=== PATIENT | female | born 1995 | race Two or more races ===

== ENCOUNTER 2022-03-29 23:06 | Emergency (ER) | payer OTHER ==
[~2022-03-29] VITALS: Ht 160 cm; Wt 54.4 kg
--- NOTE | 2022-03-30 00:15 | NUR ---
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 PT IS AAO X 4, IN NO ACUTE DISTRESS. PT ATTCHED TO MONITOR AN DPULSE OX. WILL MONITOR
[2022-03-30] MEDS ORDERED: IBUPROFEN 400 MG TABLET ONE (00:23)
--- NOTE | 2022-03-30 00:25 | NUR ---
urine collected, sent to lab
--- NOTE | 2022-03-30 00:26 | NUR ---
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
[2022-03-30] MEDS ORDERED: IBUPROFEN 400 MG TABLET PO ONE (00:30)
[2022-03-30 00:39] LABS: BASOPHILS % (AUTO) 0.4 % (0.0-2.0); EOSINOPHILS % (AUTO) 0.8 % (0.0-6.0); HEMATOCRIT 42 % (33-45); HEMOGLOBIN 14.1 g/dL (11.5-14.8); LYMPHOCYTES # (AUTO) 2.4 K/uL (0.8-4.8); LYMPHOCYTES % (AUTO) 23.6 % (20.0-44.0); MEAN CORPUSCULAR HGB CONC 33 g/dl (31.0-36.0); MEAN CORPUSCULAR VOLUME 88 fL (82-100); MONOCYTES # (AUTO) 0.7 K/uL (0.1-1.30); NEUTROPHILS # (AUTO) 6.9 K/uL (1.8-8.9); NEUTROPHILS % (AUTO) 68.2 % (43.0-81.0); PLATELET COUNT (AUTO) 370 K/uL (150-450); RED BLOOD CELL COUNT(AUTO) 4.81 MIL/uL (4.0-5.2); WHITE BLOOD COUNT (AUTO) 10.1 K/uL (4.3-11.0)
[2022-03-30 00:43] LABS: BILIRUBIN,URINE NEGATIVE (NEGATIVE); COLOR,URINE YELLOW (YELLOW); LEUKOCYTE ESTERASE ,URINE NEGATIVE (NEGATIVE); NITRITE, URINE NEGATIVE (NEGATIVE); PROTEIN,URINE NEGATIVE (NEGATIVE); UGLUCOSE NEGATIVE (NEGATIVE); UROBILINOGEN,URINE 0.2 EU/dL (0.2)
[2022-03-30] MEDS ORDERED: ONDANSETRON 4 MG TAB.RAPDIS ONE (00:47)
[2022-03-30] MEDS ORDERED: ONDANSETRON 4 MG TAB.RAPDIS SL ONE (01:00)
[2022-03-30 01:28] LABS: ALBUMIN 3.9 g/dL (3.4-5.0); BILIRUBIN,DIRECT 0.1 mg/dL (0.0-0.2); BILIRUBIN,TOTAL 0.4 mg/dL (0.2-1.0); CREATININE 0.9 mg/dL (0.6-1.3); POTASSIUM 3.3 mmol/L (3.5-5.1); TOTAL PROTEIN, SERUM 8.2 g/dL (6.4-8.2)
--- NOTE | 2022-03-30 03:24 | NUR ---
Patient discharged to home in stable condition. Written and verbal after care instructions given. Patient verbalizes understanding of instruction. Patient ambulatory with a steady gait
[2022-03-30 03:28] VITALS: BP 142/91
== END 2022-03-30 03:24 | disposition home or self-care (01) ==
LOC: ER 23:10
DX: R10.31 Right lower quadrant pain (principal)
CPT/HCPCS: 99284; 74176; 76856; 85025; 80048; 80076; 84703; 81003; 36415; Q0162